=== PATIENT | female | born 1930 | race Caucasian/White ===

== ENCOUNTER 2019-09-01 11:47 | Inpatient (IN) | payer OTHER, BC ==
[~2019-09-01] VITALS: Ht 167.6 cm; Wt 59.0 kg
--- NOTE | ~2019-09-01 | EMS ---
[address] [address] EMS Patient Care Report Name: ELIZABETH CALLEJAS Room #: 170-1 ADM IN M.R.#: [id number] Admission: 09/01/19 Attend Phys: Kaveh Salinas DO Discharge: Date of : [birth year] Report #: [id number] THIS REPORT FOR: //name// Report Transmitted: 09/01/2019 19:21 EMS Care Summary [facility] MED-ACT Incident [id number] @ 09/01/2019 11:03 Incident Location [address] [place] [address] [place] [address] Patient ELIZABETH CALLEJAS Female, 89 Years 1930 Patient Address [address] [place] [address] [place] [address] Patient History Congestive Heart Failure (CHF),Dementia,Hypertension (HTN),Hyperlipidemia,Depression,Abdominal Aortic Aneurysm,Hypothyroidism,Hyperparathyroidism,Coronary Artery Disease (CAD), Patient Allergies No known allergies, Patient Medications Memantine, Quetiapine, Buspirone, Levothyroxine, Hydroxyzine, Citalopram, Pantoprazole, Spironolactone, Chief Complaint she won't take her meds and is agitated/violent Disposition Transported No Lights/Agar Dispatch Reason Psychiatric Problem/Abnormal Behavior/Suicide Attempt Transported To [address] [address] EMS Patient Care Report Name: ELIZABETH CALLEJAS Room #: 170-1 ADM IN ..#: [id number] Admission: 09/01/19 Attend Phys: Kaveh Salinas, DO Discharge: Date of : [birth year] Report #: [id number] Narrative Dispatched to a memory care facility for a female pt reported to have persistent agitation, violence towards staff members, and to be intermittently refusing to take her medications. Staff on scene report that this has been going on for about 1-2 weeks, and that she was sent to the ER last week for it. Staff says that the pt was thought to have a UTI due to the sudden behavior changes, however one was not discovered at the ER. They report that she has been placed on Omnicef as a precaution in case a UTI was missed. They also report that she was started on Seroquel, however she has not had an improvement in her behavior with it. Staff also says that she has been spitting out her medications at times, and has been attempting to strike them. They say that she has been verbally abusive as well. Staff says that the pts son agrees with their decision to send her to an ER, and that they would like her taken to [facility] due to geriatric psychiatric resources that are available there. They report that the son/dpoa agrees with this. Pt is found alert though not oriented, seated in a wheelchair just outside of the facility. Delay in pt contact time due to EMS initially being taken to the pts room as she was moved out of the building by staff utilizing a different route. Pt is agitated and verbally berates EMS, FD, and PD on scene. She occasionally attempts to slap and punch responders. This also causes a delay in obtaining vs. She refuses to wear a surgical mask. Pt is eventually lifted from the chair to the cot before being secured and moved to the ambulance for a no lights or sirens transport to [facility]. While en route, pt continues to be aggressive verbally and physically with EMS. Pt removed her pulse Ox sensor at one point during transport and used it to swing at and strike Capt Ingrid. Pt also had to be frequently stopped from removing her seatbelts. Pt denies ant physical complaints throughout. Upon arrival at the ER, pt moves herself laterally to the ER bed. Care is transferred to [facility]. Initial Vitals @11:35P: 106,BP: 143/81, @11:34P: 104,SpO2: 96, @11:23P: 108,R: 20,BP: 142/79,Pain: 0/10,GCS: 14,Glucose: 132,SpO2: 95,Revised Trauma: 12, Assessments @11:15MENTAL:Combative,Confused,Person Oriented,SKIN:HEENT:Head/Face: No Abnormalities,LUNG SOUNDS:ABDOMEN:PELVIS//GI:EXTREMITIES:Left Arm: No Abnormalities,Right Arm: No Abnormalities,PULSE:Radial: 2+ Normal,NEURO:No Abnormalities, Impression Behavioral/psychiatric episode [address] [address] EMS Patient Care Report Name: ELIZABETH CALLEJAS Room #: 170-1 ADM IN M.R.#: [id number] Admission: 09/01/19 Attend Phys: Kaveh Salinas, DO Discharge: Date of : [birth year] Report #: [id number] Timeline 11:01,Call Received 11:01,Psap Call 11:03,Dispatched 11:04,En Route 11:08,On Scene 11:12,At Patient 11:23,BP: 142/79 M,PULSE: 108,RR: 20 R,SPO2: 95 Ox,ETCO2: ,B,PAIN: 0,GCS: 14, 11:25,Depart Scene 11:34,BP: / M,PULSE: 104,RR: R,SPO2: 96 Ox,ETCO2: ,BG: ,PAIN: ,GCS: , 11:35,BP: 143/81 M,PULSE: 106,RR: R,SPO2: Ox,ETCO2: ,BG: ,PAIN: ,GCS: , 11:38,At Destination 12:03,Call Closed Disclaimer v1.1 Copyright 2020 [employer] This EMS Care Summary contains data elements from the applicable legal record (which may be displayed differently). It is designed to provide pertinent information for the following purposes: continuity of care, clinical quality, and state data reporting. The complete legal record is available to ED staff and administrators of the receiving hospital in [employer] Patient Tracker. All data is provided "as is."
[2019-09-01 11:48] VITALS: BP 137/68
[2019-09-01 15:33] LABS: CALCIUM 9.3 mg/dL (8.5-10.1); CREATININE 1.2 mg/dL (0.6-1.0); POTASSIUM 3.9 mmol/L (3.5-5.1)
[2019-09-01 15:38] LABS: ALBUMIN 3.8 g/dL (3.4-5.0); TOTAL BILIRUBIN 0.7 mg/dL (0.2-1.0); TOTAL PROTEIN 7.6 g/dL (6.4-8.2)
[2019-09-01 17:18] LABS: ABSOLUTE NEUTROPHILS 4.8 thou/uL (1.4-8.2); BASOPHILS 0.7 % (0.0-2.0); EOSINOPHILS 2.6 % (0.0-3.0); HEMATOCRIT 35.7 % (37.0-47.0); LYMPHOCYTES 20.6 % (24.0-44.0); MCH 32.4 pg (26.0-34.0); MCHC 33.7 g/dL (28.0-37.0); MCV 96.2 fL (80.0-100.0); MONOCYTES 10.3 % (1.0-8.0); PLATELET COUNT 245 thou/uL (150-400); POLYS 65.8 % (36.0-66.0); RBC 3.71 mil/uL (4.20-5.00); RDW 14.9 % (10.5-14.5); WBC 7.3 thou/uL (4.0-11.0)
[2019-09-01 17:33] LABS: URINE BILIRUBIN NEGATIVE (Negative); URINE BLOOD NEGATIVE (Negative); URINE CLARITY CLEAR; URINE COLOR YELLOW; URINE GLUCOSE-RANDOM* NEGATIVE (Negative); URINE KETONES TRACE (Negative); URINE LEUKOCYTES-REFLEX 1+ (Negative); URINE NITRITE-REFLEX NEGATIVE (Negative); URINE PROTEIN (DIPSTICK) NEGATIVE (Negative); URINE SPECIFIC GRAVITY 1.015 (1.005-1.035); URINE UROBILINOGEN 0.2 E.U./dl (0.2-1.0)
[2019-09-01 17:49] LABS: BACTERIA-REFLEX 1-9 Few /HPF (None Seen); CASTS None Seen /LPF (None Seen); CRYSTALS None Seen /LPF (None Seen); SQUAMOUS 0-3 Few /LPF (0-3); URINE RBC None Seen /HPF (0-2); URINE WBC-REFLEX 6-15 Few /HPF (0-5)
[2019-09-01 19:45] VITALS: BP 155/87
[2019-09-01 20:16] VITALS: BP 155/87
[2019-09-01 23:20] VITALS: BP 158/80
--- NOTE | 2019-09-01 23:55 | NUR ---
PATIENT CAME BY STRETCHER FROM [facility] ED TO [facility] UNIT AT 201909/01/19. SHE IS ADMITTED FOR DEMENTIA WITH AGITATION AND UTI. CURRENT UA IS AWAITING CULTURE RESULTS BEFORE TREATING WITH ANTIBIOTIC. SHE WAS IN [facility] FOR 5 DAYS AUGUST 21- FOR POSSIBLE UTI. SHE WAS THEN SENT BACK TO [facility] IN [place] WHERE SHE LIVES. SHE WAS STARTED ON CEFDINIR 300MG BID FOR 5 DAYS. SHE WAS STARTED ON IT ON THE FOR EMPIRIC UTI. LAST DOSE UNKNOWN. CALLED AND SPOKE WITH HER SON EJ SENIOR WHO IS ALSO HER DPOA. HE STATES THAT PATIENT HAS DX OF ALZHEIMERS. HE STATES SHE IS A/0X1 AND IS USUALLY VERY SWEET AND PLEASANT TO BE AROUND. HE STATES THAT SHE HAS HAD AT LEAST 7 UTI'S IN LAST 2 YEARS AND WITH EACH ONE SHE PRESENTS WITH SEVERE AGITATION, BECOMES HATEFUL AND COMBATIVE AND THREATENS TO HURT PEOPLE. HE STATES THAT PATIENT IS A DNR. HE GIVES CONSENT TO FORCE MEDS OR INJECTIONS IN ORDER TO KEEP PATIENT COMFORTABLE AND HER BEHAVIORS UNDER CONTROL TO NOT HARM HERSELF OR OTHERS. HE IS UPSET WITH [facility] STATING HE TOLD THEM THEY WERE DISCHARGING HER TOO SOON. PATIENT PRESENTS TONIGHT SEDATED AND OCCASIONALLY TALKING OUT LOUD BUT NOT MAKING SENSE. SHE KEEPS HER EYES CLOSED. SHE HAD GEODON 10MG IM AROUND NOON ON THE IN ER AND HAS HAD ATIVAN 2MG AT 1530 ON THE IN THE ER. PATIENT'S SKIN IS WARM DRY AND INTACT. SHE DOES HAVE BRUISING IN AREAS OF BOTH FOREARMS AND BACK OF HANDS FROM IV STICKS IN ED. LUNGS CLEAR BUT DIMINISHED BILATERALLY, RESPIRATIONS EVEN WITH SLIGHT LABORING. HOB INCREASED TO 30 DEGREES. 02 SAT 95% ON RA. BOWEL SOUNDS HYPOACTIVE X 4 QUADS. ABDOMEN SOFT AND NONTENDER. NO EDEMA NOTED THRUOUT. PATIENT'S BELONGINGS INVENTORIED. PATIENT WAS STANDBY ASSIST TO BSC IN ED PER REPORT FROM MANI BRITTON. PATIENT RESTING COMFORTABLY. WALKER BESIDE BED. BED IN LOW POSITION AND BED ALARM IS ON AND BED IS LOCKED. ROUTINE ROUNDING TO ASSESS STATUS AND SAFETY OF PATIENT.
[2019-09-02] MEDS ORDERED: BESIVANCE5 ML LT. EYE (05:59)
[2019-09-02] MEDS ORDERED: BUSPIRONE HCL10 MG PO (06:00)
[2019-09-02] MEDS ORDERED: CHILDREN'S ZYRT10 M1 PO (06:01)
[2019-09-02] MEDS ORDERED: ERYTHROMYCIN E3.5 G3 OPHTHALMIC (06:02)
[2019-09-02] MEDS ORDERED: LEXAPRO 10 MG T10 M1 PO (06:03)
[2019-09-02] MEDS ORDERED: HYDROXYZINE HCL10 M2 PO (06:05)
[2019-09-02] MEDS ORDERED: LEVO-T25 MCG PO (06:08)
[2019-09-02] MEDS ORDERED: LORAZEPAM 0.50.5 MG PO (06:08)
[2019-09-02] MEDS ORDERED: PROTONIX40 M2 PO (06:09)
[2019-09-02] MEDS ORDERED: SPIRONOLACTONE25 MG PO (06:11)
[2019-09-02 07:24] VITALS: BP 131/62
--- NOTE | 2019-09-02 08:39 | EKG ---
[facility] [place] [address] ELECTROCARDIOGRAM REPORT Name: ELIZABETH CALLEJAS Room #: [facility] ADM IN M.R.#: [id number] Admission: 09/01/19 Attend Phys: Kaveh Salinas DO Discharge: Date of : [birth year] Report #: [id number] THIS REPORT FOR: cc: Nelly Diana MD, Lisa MD Lundgren,Vicente Martell MD [facility] ~ THIS REPORT FOR: //name// [facility] ED Test Date: 2019-09-01 Test Time: 14:05:57 Pat Name: ELIZABETH CALLEJAS Department: Room: 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1930 Requested By: Matteo Pate Order Number: [id number] MD: Vicente Martinez Measurements Intervals [place] Rate: 84 P: 39 IL: 193 QRS: -26 QRSD: 103 T: 2 QT: 414 QTc: 490 Interpretive Statements Sinus rhythm Borderline left axis deviation Poor R wave progression No previous ECG available for comparison Electronically Signed On 09-02-2019 8:39:43 CDT by Vicente Martinez [email or web address] <ELECTRONICALLY SIGNED> By: Vicente Martinez MD, [facility] 09/02/19 0839 1405 1405 Vicente Martinez MD, [facility] /EPI
[2019-09-02 11:56] LABS: TSH 6.09 uIU/mL (0.358-3.740)
--- NOTE | 2019-09-02 15:12 | NUR ---
SLEPT LATE THIS AM -DID NOT EAT BREAKFAST BUT WAS ROUSABLE FOR AM MEDICATION AND EYE OINTMENT. WAS AGITATED AND ATTEMPTED TO STRIKE NURSING STAFF WHEN IM B12 ADMINISTERED. IS SOMULENT AND WILL FALL ASLEEP MID-CONVERSATION. REQUIRES ASSIST OF 1-2 FOR ALL ADLS INCLUDING TOILETING . HIGH FALLS RISK D/T ATAXIA,IMPULSIVE BEHAVIOR
--- NOTE | 2019-09-02 16:14 | NUR ---
HAMMAD spoke to the [facility] [address] of regarding pt. She said pt has resided there since 11/2018. She said in order for pt to return she needs to not be combative anymore. Fax number to send updates is [phone]. HAMMAD contacted Artur and introduced herself as well as got background hx. He believes pt's behaviors are due to a UTI; he said she behaves this way when she has one. HAMMAD provided education on dementia disease process and ensured he had pt's 4 digit code. He said pt was recently released from [facility] before he believes she was ready. HAMMAD team will continue to follow pt during her stay on this unit.
--- NOTE | 2019-09-02 19:27 | NUR ---
Care of patient assumed at 1915. Patient is lying in bed. Per report, patient attempts to get up to the toilet by herself. Murillo is provided to patient to be able to summon staff for assistance. Patient is sleeping when HS meds are delivewred to her room. States "What... I'm sleeping." when awakened for meds. Irritable and refuses assessment, but does take HS meds. Sleeping at each check.
[2019-09-02 20:08] VITALS: BP 107/40
--- NOTE | 2019-09-02 21:41 | H ---
[facility] [place] [address] HISTORY AND PHYSICAL Name: ELIZABETH CALLEJAS Room #: 520B-B ADM IN M.R.#: [id number] Admission: 09/01/19 Attend Phys: Kaveh Salinas DO Discharge: Date of : [birth year] Report #: [id number] THIS REPORT FOR: cc: Nelly Diana MD,Nelly Salinas,Kaveh Martell DO ~ CC: Kaveh Diana DATE OF SERVICE: 09/02/2019 INPATIENT PSYCHIATRIC EVALUATION ATTENDING PSYCHIATRIST: Kaveh Salinas DO. MEDICAL CONSULTANTS: RAYNE Hernandez and Bakari Sen MD and his hospitalist team. REASON FOR ADMISSION: Dementia with increased agitation, aggression, from [facility], hitting, biting, spitting out meds, believed to have a current UTI, but is refusing medication. She already went to Memory Care Unit. SOURCES OF INFORMATION: Records from [facility], Emergency Room interview with the patient today. I have not spoken to her power of assistant district attorney, Artur, who is her son, but I will add that on if I do today. CHIEF COMPLAINT: "You bitch."- said during ER encounter with program adminastrator HISTORY OF PRESENT ILLNESS: This is an 89-year-old female residing in Memory Care at [facility]. She has a history of increased agitation x 1 week. Staff at Memory Care Unit reports the patient has been more agitated, hitting staff multiple times. EMS attempted to transport the patient last week, but she became so aggressive that the son decided against the transport. The patient was started on Seroquel, but that has not improved her behavior today. The son agreed to have the patient evaluated here at [facility]. The patient denies any symptoms and is angry that she is even here. ALLERGIES: No known allergies. SOCIAL HISTORY: Denied cigarette use, denied alcohol use, denied recreational drug use. REVIEW OF SYSTEMS: From the Emergency Room in [place]: CONSTITUTIONAL: Denies fever, chills, malaise, unexplained weight change. EYES: Denies eye pain, visual change or discharge. [facility] [address] [place] [address] HISTORY AND PHYSICAL Name: ELIZABETH CALLEJAS Room #: 520B-B ADM IN M.R.#: [id number] Admission: 09/01/19 Attend Phys: Kaveh Salinas DO Discharge: Date of : [birth year] Report #: [id number] HENT: Denies hearing changes, ear drainage, ear infections, ear pain, neck pain or neck stiffness. RESPIRATORY: Denies cough, shortness of breath, hemoptysis or respiratory distress. CARDIOVASCULAR: Denies chest pain, chest pain with exertion or edema. GASTROINTESTINAL: Denies abdominal pain, nausea, vomiting or diarrhea. GENITOURINARY: Denies burning, frequency or dysuria. MUSCULOSKELETAL: Denies back pain, joint pain, muscle weakness or myalgias. SKIN: Denies rash. NEUROLOGIC: Denies weakness, headache or loss of consciousness. PSYCHIATRIC: As above. Otherwise, 10-point review of systems was negative. Her physical exam was grossly normal. LABORATORY DATA: EKG done in the ER interpreted by Dr. Philippe showed a sinus rhythm, rate of 84, nonspecific ST changes, QTc of 490. Laboratory Tests: White count 7.3, H and H 12.0 and 35.7, platelet count 245. Chemistries showed sodium 138, potassium 3.9, chloride 102, bicarbonate 24, anion gap 12, BUN 19, creatinine 1.2, estimated GFR 42, glucose 98, calcium 9.3, total bilirubin 0.7, AST 29, ALT 19, alkaline phosphatase 88, total protein 7.6, albumin 3.8. Vitamin B12 level 175. Iron replacement initiated. TSH slightly elevated at 6.09. 25-hydroxy vitamin D is pending. Urinalysis showed trace ketones, 1+ leukocyte esterase, positive for wbc's, few bacteria. Culture has been refluxed and that is not back yet. COVID-19 PCR was done and she is negative. PAST MEDICAL HISTORY: Abdominal aortic aneurysm, coronary artery disease, congestive heart failure, hypertension, hypothyroidism, urticaria, essential tremor. PRIMARY CARE PHYSICIAN: Dr. Nelly Diana, [phone]. ADDITIONAL INFORMATION: From [facility]. MEDICATIONS: At [facility] were quite a few and include: Tylenol; antibiotic ointment; buspirone; cefdinir, which is Omnicef 300 mg q.12 for empiric UTI. Cetirizine 10 mg p.o. daily. Ellura 36 mg PAC, I am not sure what that is, actually it says 200 mg. Erythromycin ointment was started 08/26/2019, so probably discontinue that if she is cleared up for her eye. Escitalopram 10 mg p.o. daily; estradiol cream; Eucerin cream; hydroxyzine; levothyroxine; lorazepam; melatonin; memantine; spironolactone; Seroquel 50 at night, 25 during the day; Protonix 40 mg daily for GERD, so we will discontinue the b.i.d. She was just in the ER at [facility]. [address] [address] HISTORY AND PHYSICAL Name: ELIZABETH CALLEJAS Room #: 520B-B ADM IN M.R.#: [id number] Admission: 09/01/19 Attend Phys: Kaveh Salinas, DO Discharge: Date of : [birth year] Report #: [id number] With regard to her current pharmacy, I will review what I have ordered, already made some increases to the Seroquel and changes to her other psychotropic medications. So, currently it is Tylenol p.r.n.; citalopram 20 mg p.o. daily, which we will discontinue due to her disinhibition. Keflex 500 mg b.i.d., vitamin B12 1000 mcg daily x 3 doses and then 1000 mcg oral daily. Levothyroxine 88 mcg daily, Mylanta p.r.n. Pantoprazole 40 mg b.i.d., we will change that to just 40 mg daily. Seroquel, I increased to 75 mg at bedtime, 50 mg twice a day at 9 and 5. Spironolactone 12.5 mg every other day. Buspirone, I reduced from 20 b.i.d. to 10 b.i.d. Pantoprazole, I reduced to 40 mg p.o. daily. PHYSICAL EXAMINATION: VITAL SIGNS: Today, temperature 36.3, pulse 72, respirations 13, BP 131/62, O2 sat 94%. MUSCULOSKELETAL: Abnormal gait, uses a walker, standby assist. MENTAL STATUS EXAMINATION: This is a well-developed, somewhat unkempt female appearing at least stated age. Attention limited. Concentration limited. mood/affected- constricted Speech slow, loud at times. Thought Process: Very limited and linear way. Thought Content: Intermittently cursing, irritable. No specific subjects could be elicited with recurrent thoughts. Denied SI or HI. Could not assess well for auditory, visual, or tactile hallucinations. Memory known to be impaired. Insight impaired, judgment impaired. Fund of knowledge well below average. FORMULATION: An 89-year-old female admitted for dementia with behavioral disturbance scenario. 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 She has a number of other morbidities including possible cystitis, history of cardiovascular disease, hypothyroidism. PLAN: Evaluate, stabilize, obtain collateral. Medication changes as above. Time spent on interview, review of records, coordination of care is at least 60 minutes. STRENGTHS: She is insured, supportive family, has DPOA. WEAKNESSES: Advanced age, neurodegenerative disorder, comorbidities. ADDENDUM: I spoek to son/ dpoa Son on phone after dictating. He reports 7 year hx of [address] [address] HISTORY AND PHYSICAL Name: ELIZABETH CALLEJAS [facility] M.R.[facility] [id number] Admission: 09/01/19 Attend Phys: Kaveh Salinas, Discharge: Date of : [birth year] Report #: [id number] dementia. He wants me to give independent diagbnostic opinion. I discussed black box warnign of use of antipsyhcotic in dentia patients. I left it I would vistit with him first few days of next week over phone again. <ELECTRONICALLY SIGNED> By: Kaveh Salinas DO 09/02/19 2141 [id number] 1825 Kaveh Salinas, /nt
[2019-09-03 07:40] VITALS: BP 112/58
--- NOTE | 2019-09-03 09:51 | NUR ---
Pt was in day room when I arrived this AM. Pt ate most of her brekfast this am. Medications taken whole with no resistance fluids encouraged. Assistment was as follows, chest clearx2,pedal pulse faint x2 heart regular. No edema noted on ankles or feet. Pt was some what irritable this AM denied any pain or depression. Staff continues to observe for safety.
[2019-09-03 17:20] VITALS: BP 112/58
--- NOTE | 2019-09-03 19:24 | NUR ---
Care of patient assumed at 1915. Patient is already in bed sleeping. Awakened at 2130 for HS meds. Irritable at being awakened. Compliant with HS meds but refuses assessment. Uncooperative with phsyical assessment and will not answer psych assessment line of questions. Sleeping again 10 minutes later.
[2019-09-03 19:30] VITALS: BP 82/34
[2019-09-04 07:49] VITALS: BP 94/49
[2019-09-04 09:13] VITALS: BP 135/40
--- NOTE | 2019-09-04 10:39 | NUR ---
1035 RESUMMED CARE FROM OVERNIGHT SHIFT THIS AM, PATIENT IN ROOM GETTING READY FOR BREAKFAST. PATIENT ORIENTED TIMES 2 PATIENT ATE BREAKFAST TOOK MEDICATION WITHOUT INCIDENCE. PATIENTS ABDOMEN SOFT ROUND BOWEL SOUNDS PRESENT LUNGS CLEAR. PATIENT DENIES SI/HI/AH/VH AT PRESENT, PATIENT CALM COOPERATIVE PLEASANT. WILL CONTINUE TO MONITOR PATIENT FOR BEHAVIORS AND SAFETY.
--- NOTE | 2019-09-04 19:18 | NUR ---
Care of patient ifeanyi at 1915. Patient is just retiring to her room. Calm and cooperative with assessment this evening. Oriented x 2. Denies pain. Says that the SW told her that her has and been buried. Patient is concerned that the kids are going to take all of the money and leave her with nothing. MASON, LS, BS all WNL. Patient is compliant with HS oral meds, but refuses scheduled Heparin SQ injeciton, stating "I don't need anything for blood clots. If it happens, it happens. I've had a long, full life, and a stroke or heart attack doesn't sound like a bad way to go if I have to go."
[2019-09-04 19:33] VITALS: BP 116/56
[2019-09-05 07:16] VITALS: BP 117/75
[2019-09-05 09:27] VITALS: BP 117/75
--- NOTE | 2019-09-05 11:10 | NUR ---
1110 RESUMMED CARE FROM OVERNIGHT SHIFT THIS AM, PATIENT ALLOWED ME TO DO HER ASSESSMENT. DURING EATING BREAKFAST PATIENT TOOK MEDICATION ORALLY BUT HAD REFUSED LET ME GIVE HER HEPARIN INJECTION. I THEN WENT INTO THE [facility] AND HAD ANOTHER STAFF HOLD HER HANDS WHILE I GAVE HER INJECTION. PATIENT CUSSED ME OUTAND CALLED ME A BITCH. PATIENT HAD HER BELONGING AND WAS CARRYING THEM AROUND STATING THAT SHE WAS LEAVING. DR VICTOR TOLD PATIENT SHE WAS NOT DISCHARGING TODAY. PATIENT WAS SOMEWHAT FRUSTRATED AND WANTED TO BE LEFT ALONE. PATIENT DENIES SI/HI/AH/VH AT PRESENT PATIENT ORIENTED TO SELF AND PLACE. WILL CONTINUE TO MONITOR PATIENT FOR BEHAVIORS AND SAFETY.
--- NOTE | 2019-09-05 11:55 | NUR ---
HAMMAD sent updates to Almita with [facility]. HAMMAD team will continue to follow pt during her stay on this unit.
[2019-09-05 20:31] LABS: ABSOLUTE NEUTROPHILS 7.5 thou/uL (1.4-8.2); BASOPHILS 0.4 % (0.0-2.0); EOSINOPHILS 3.6 % (0.0-3.0); HEMATOCRIT 40.3 % (37.0-47.0); HEMOGLOBIN 13.4 gm/dL (12.0-15.0); LYMPHOCYTES 15.5 % (24.0-44.0); MCHC 33.2 g/dL (28.0-37.0); MCV 96.2 fL (80.0-100.0); MONOCYTES 8.5 % (1.0-8.0); PLATELET COUNT 281 thou/uL (150-400); RBC 4.19 mil/uL (4.20-5.00); RDW 15.1 % (10.5-14.5); WBC 10.5 thou/uL (4.0-11.0)
[2019-09-05 21:21] LABS: CALCIUM 9.6 mg/dL (8.5-10.1); CREATININE 1.2 mg/dL (0.6-1.0); MAGNESIUM 2.2 mg/dL (1.8-2.4); POTASSIUM 4.4 mmol/L (3.5-5.1)
[2019-09-05 23:20] VITALS: BP 140/80
--- NOTE | 2019-09-06 03:46 | NUR ---
09-05-19 CARE TRANSFERED 1914 PT COMBATIVE, SWING ON RN AND DIRECTOR OF CORPORATE STRATEGY, PT REFUSES VS AND NURSING ASSESSMENT. PT AAOX2, PT STATED "I KNOWN WHO OWNS THIS HOSPITAL AND NICK GOING TO GET ALL OF YOU FIRED. YOU CANNOT KEEP ME HERE, I AM GOING HOME TONIGHT" REATTEMPTED NURSING ASSESSMENT AND PT REFUSED. PT WAS REFUSING MEDICATION THEN SECURITY TEAM ASSISTED AND PT DECIDED TO TAKE PO MEDICATION. IM MEDICATION WAS WASTED. LATER OBSERVED PT PUSH W/CHAIR INTO DIRECTOR OF CORPORATE STRATEGY AND SWING ON DIRECTOR OF CORPORATE STRATEGY, THEN PT TOOK HERSELF TO THE GROUND, THEN PT REARED HEAD BACK AND HIT WALL WITH RIGHT SIDE OF HEAD. PT CONTINUE VERBAL ABUSING STAFF, BUT DID COOPERATIVE AND REPOSITION HERSELF INTO SITTING POSITION. VS B/P MANUAL LEFT ARM SITTING 140/80, P 79, R 18, T 97.4, O2 SAT 97% RA RR EVEN AND NONLABORED; PERRLA, EQUAL STRONG WATCH ADJUSTER. ZERO IMPACT INJURIES NOTED. PT REPORTED THE LEFT SIDE OF HER HEAD HURT. ASKED PT IF SHE WOULD LIKE TYLENOL; PT STATED "I DON'T NEED YOUR HELP." PT PRESENTS COMBATIVE, ANGRY, HOSITLE AND DEMANDING WITH SARCASTIC COMMENTS TO STAFF. ZERO S/S OF ACUTE EMOTIONAL OR MEDICAL DISTRESS. WILL CONTINUE TO MONITOR PER [facility] PROTOCOL.
[2019-09-06 06:38] LABS: CALCIUM 8.5 mg/dL (8.5-10.1); CREATININE 1.1 mg/dL (0.6-1.0)
[2019-09-06 07:18] VITALS: BP 115/61
[2019-09-06 07:22] VITALS: BP 115/61
[2019-09-06 10:14] VITALS: BP 115/61
--- NOTE | 2019-09-06 10:24 | NUR ---
ASSUMED CARE AT 0700. PT. UP IN W/C ON THE UNIT, SITTING AT A TABLE. SHE IS FORGETFUL AND IRRITABLE. SHE ALLOWED THIS CRAP SHOOTER TO ASSESS HER AND GIVE HER HER MEDICATIONS. HOWEVER, SHE DID REFUSE THE HEPARIN. DR. PERKINS WAS NOTIFIED. WHEN THIS CRAP SHOOTER TRIED TO TALK TO HER, SHE SAID, "I'M FINE AND YOU CAN MOVE ALONG". SHE DENIES PAIN. HRR, LUNGS CTA, ABD. ROUND, SOFT. PEDAL PULSES + AND EQUAL BILAT. SHE WENT DOWN FOR A ULTRA SOUND OF HER KIDNEYS. SHE WAS WORRIED SHE WOULD BE BILLED FOR THAT. SHE KEPT STATING IT WAS MONEY FOR THE DR. SHE IS EATING WELL AND WILL SET IN ON GROUPS.
--- NOTE | 2019-09-06 12:17 | NUR ---
HAMMAD and Dr. Salinas hosted a family meeting via phone and discussed pt's med regimen. Dr. Salinas noted that it looks like pt's culture indicated an infection. He said he needed pt's records from [facility]. HAMMAD emailed to Artur a copy of a hospital release of information form to be signed by him. HAMMAD received this form back and faxed it to [facility]. HAMMAD team will continue to follow pt during her stay on this unit.
[2019-09-06 19:15] VITALS: BP 99/68
--- NOTE | 2019-09-07 03:55 | NUR ---
09-06-19 CARE TRANSFERED AT 1900 OBSERVED PT SITTING IN W/CHAIR IN DAY ROOM. 1909 PT AAOX3, VSS, RR EVEN AND NONLABORED ON RA; PT DENIES ANY NEW CONCERNS AT THIS TIME. PT WAS CALM AND COOPERATIVE THROUGHOUT NURSING ASSESSMENT. PT DENIES ANY PAIN AND SI/SH/HI/VAH. DURING MEDICATION ADMIN PT REFUSED IM HEPARIN STATING "I DON'T NEED THIS" PT HAD NO DIFFICULTIES TAKING PO PILLS. PT DID PRESENT A LITTLE IRRITABLE DURING MEDICATION ADMIN IT WAS R/T IM SHOT. ZERO S/S OF ACUTE EMOTIONAL OR MEDICAL DISTRESS. WILL CONTINUE TO MONITOR PER [facility] PROTOCOL.
[2019-09-07 05:57] LABS: CALCIUM 8.7 mg/dL (8.5-10.1); CREATININE 1.2 mg/dL (0.6-1.0); POTASSIUM 4.2 mmol/L (3.5-5.1)
[2019-09-07 06:06] LABS: ABSOLUTE NEUTROPHILS 4.4 thou/uL (1.4-8.2); BASOPHILS 0.6 % (0.0-2.0); EOSINOPHILS 7.6 % (0.0-3.0); HEMATOCRIT 37.3 % (37.0-47.0); HEMOGLOBIN 12.4 gm/dL (12.0-15.0); LYMPHOCYTES 17.2 % (24.0-44.0); MCHC 33.2 g/dL (28.0-37.0); MCV 96.5 fL (80.0-100.0); MONOCYTES 10.7 % (1.0-8.0); PLATELET COUNT 233 thou/uL (150-400); POLYS 63.9 % (36.0-66.0); RBC 3.87 mil/uL (4.20-5.00); RDW 15.3 % (10.5-14.5); WBC 6.9 thou/uL (4.0-11.0)
[2019-09-07 07:22] VITALS: BP 133/76
[2019-09-07 12:47] VITALS: BP 133/76
--- NOTE | 2019-09-07 12:56 | NUR ---
ASSUMED CARE AT 0700. SHE HAS BEEN ON THE UNIT, DRESSED. SHE IS MOSTLY PLEASANT WITH THIS RN. SHE TOOK HER MORNING MEDICATIONS WITHOUT DIFFICULTY. SHE CONTINUES TO REFUSE HER SQ HEPARIN AND HER CYNOCABALAMIN. AGAIN INFORMED OF THIS. HE LOOKED AT HER MEDICATIONS AND D/C'D THE MEDS. SHE ATTENDED MORNING GROUPS. SHE CONTINUES TO HAVE A FLAT AFFECT BUT IS RESPONDING TO ALL QUESTIONS ASKED OF HER AND WILL HOLD THE CONVERSATION.
--- NOTE | 2019-09-07 13:29 | NUR ---
HAMMAD contacted Almita with [facility] to provide an update on pt. Almita was on another call. HAMMAD left [facility]. SW team will continue to follow pt during her stay on this unit.
[2019-09-07 14:18] VITALS: BP 140/64
--- NOTE | 2019-09-07 15:54 | NUR ---
Sw met with this pt 1:1 instead of group and provided some distraction and reminiscent therapy. Pt is convinced she was just in [facility] and that she needed to get back to [place]. She repeatedly told this television script writer that her 3 sons live in the [facility] area but has no idea how she got here. Pt is pleasantly confused.
--- NOTE | 2019-09-07 19:21 | NUR ---
Care of patient assumed at 1915. Patient is sitting in the day room in wheel chair. Disoriented to time, palce, and situation. Assisted to the toilet. Talks about her kids "taking everything and leaving me with nothing". Several times makes reference to [place], thinking she is at a resort in [place]. HS, LS, BS WNL. This nurse attempts to reorient patient to time, place, and situation with little to no success. Patient complies with HS meds, only because this nurse explained the purpose of the antibiotic. Up to bathroom twice more before falling asleep.
[2019-09-07 20:19] VITALS: BP 113/53
[2019-09-08 07:27] VITALS: BP 108/65
--- NOTE | 2019-09-08 08:00 | NUR ---
PT SITTING IN DINING ROOM FOR BREAKFAST. PT IN W/C. PT DENIES ANY GOAL OR CONCERNS TODAY. PT HAS SLIGHT [place]OVERDALE. GETTING PT COFFEE ASKED IF SHE IS DM SHE STATED NO JUST AN OLD LADY AND LAUGHED. PT TOOK MEDS WITH ENCOURAGEMENT. PT LUNGS CLEAR. PT DENIES PAIN.
[2019-09-08 08:30] VITALS: BP 108/65
--- NOTE | 2019-09-08 08:41 | NUR ---
RT Progress Note- Luz's participation in the milieu and recreation groups has progressed during her stay. She is less irritable during social interactions, though she continues to show poor orientation to present situation. She enjoys reminiscing in particular.
--- NOTE | 2019-09-08 11:25 | NUR ---
ASSISTED PT TO BATHROOM. PT IS UPSET DUE TO NOT MAKING TO BATHROOM ON TIME. PT STATED IT TAKES HER AWHILE TO GET TO BATHROOM WHEN WHEELING SELF IN W/C. PT STATED HER LEFT KNEE GIVES OUT AND SHE HAS SOME PAIN TO IT. WILL GIVE PT SOME MEDICATION FOR KNEE PAIN.
--- NOTE | 2019-09-08 12:24 | NUR ---
ADM TYLENOL 325MG 2 TABS ORAL FOR PAIN TO LEFT KNEE OF 8 ON 1-10 SCALE. PT STATED ITS GETTING BETTER NOW THAT SHE IS OFF OF IT.
--- NOTE | 2019-09-08 13:37 | NUR ---
[facility] faxed updates to [facility] for pt. [facility] team will continue to follow pt during her stay on this unit.
--- NOTE | 2019-09-08 16:24 | NUR ---
PT RESTING IN BED WITH EYES CLOSED. PT UNABLE TO TAKE PO SEROQUEL AT THIS TIME.
--- NOTE | 2019-09-08 17:40 | NUR ---
NOTIFIED DR. VICTOR ABOUT PT NOT ABLE TO TAKE SEROQUEL. HE IS AWARE OF HER SLEEPINESS. WILL ASSESS SOMULANCE TOMMORROW.
[2019-09-08 19:24] VITALS: BP 113/61
--- NOTE | 2019-09-09 02:19 | NUR ---
Care of patient assumed at 1915. Patient is laying in bed. Calm and cooperative with assessment. Denies pain. Denies SI/HI. Still very confused, A/O to self only. Asked if she talked to the SW as she had wanted to. Patient doesn't remember conversation in which she said she needed to see the SW. HS, LS, BS WNL. Patient is compliant with HS meds when delivered to her. Asleep shortly later. Patient is up a few times throughout the night to use toilet. Able to return to sleep without issue each time.
[2019-09-09 07:30] VITALS: BP 118/70
--- NOTE | 2019-09-09 10:30 | NUR ---
Assess due to length of stay. Admit to [facility] for alzheimers dementia and behavioral disturbances. Hx CKD. Labs indicate pt vitamin D and B12 deficiency and has been started on appropriate supplementation for this. Wt stable. Eating 90-100% of majority of meals. Provider has indicated malnutrition: will defer. No further nutrition intervention needed at this time. Low nutrition risk
--- NOTE | 2019-09-09 13:00 | NUR ---
[facility] contacted [facility] to discuss d/c for pt on Thursday and was told Almita the DON is not in today. SW team will continue to follow pt during her stay on this unit.
[2019-09-09 13:32] VITALS: BP 118/70
--- NOTE | 2019-09-09 13:37 | NUR ---
ASSUMED CARE AT 0700 TODAY. PT. UP, DRESSED, IN W/C, AND IN THE DAY ROOM/DINNING ROOM. PT. SITTING QUIETLY. SHE WANTED ALL HER MEDICATIONS EXPLAINED TO HER. AFTER THEY WERE EXPLAINED, SHE TOOK THEM. HER TONE HAS AN EDGE TO IT. SHE IS A BIT IRRITABLE.W SHE STARTED TELLING THIS UTILITY SPECIALIST THAT SHE IS NOT YELLING OUT LIKE A PEER IS DOING TODAY. SHE BELIEVES BECAUSE OF THIS, SHE MUST NOT NEED ANY MORE HELP AND THUS CAN GO HOME. IT WAS EXPLAINED TO HER THAT IT WILL BE NEXT WEEK WHEN SHE CAN GO HOME. SHE ACCEPTED THIS BUT STATED SHE WANTS THE DRMarti TO TELL HER. SHE HAD AN ORDER FOR A UA. THIS WAS OBTAINED AND SENT TO THE LAB.
[2019-09-09 14:04] LABS: URINE BILIRUBIN NEGATIVE (Negative); URINE BLOOD 1+ (Negative); URINE CLARITY CLEAR; URINE COLOR YELLOW; URINE GLUCOSE-RANDOM* NEGATIVE (Negative); URINE KETONES NEGATIVE (Negative); URINE NITRITE-REFLEX NEGATIVE (Negative); URINE PROTEIN (DIPSTICK) NEGATIVE (Negative); URINE UROBILINOGEN 0.2 E.U./dl (0.2-1.0)
[2019-09-09 14:15] LABS: URINE LEUKOCYTES-REFLEX 3+ (Negative)
[2019-09-09 14:26] LABS: CASTS None Seen /LPF (None Seen); SQUAMOUS 4-10 Moderate /LPF (0-3)
[2019-09-09 14:27] LABS: CRYSTALS None Seen /LPF (None Seen); URINE RBC 0-2 Rare /HPF (0-2); URINE WBC-REFLEX >25 Many /HPF (0-5); WBC CLUMPS Moderate (None Seen)
[2019-09-09 19:59] VITALS: BP 94/37
--- NOTE | 2019-09-10 01:19 | NUR ---
Care of patient assumed at 1915. Patient is in her wheel chair in the hallway. Pleasant and cooperative with assessment. Oriented to self only. COnfused. Denies pain. Says she doesn't understand why the kids haven't visited. This nurse explains that visitors are very limited due to COVID -19. Patient accepts this well. Goes to her room to watch the sunset out the window. Compliant with HS meds.
[2019-09-10 07:49] VITALS: BP 99/48
[2019-09-10 10:04] VITALS: BP 110/68
--- NOTE | 2019-09-10 12:21 | NUR ---
1200 RESUMMED CARE FROM OVERNIGHT SHIFT THIS AM, PATIENT UP IN W/C IN ROOM. PATIENT ALLOWED ME TO DO HER ASSESSMENT ABDOMEN SOFT ROUND BOWEL SOUNDS PRESENT. PATIENTS LUNGS CLEAR PATIENTS SKIN MOTTLED SOME BRUISING ON HANDS DUE TO DRAWING BLOOD. PATIENT REFUSED HER LABS THIS AM AND DR PERKINS SAID WE CAN TRY TO GET THEM TOMMOROW. PATIENT STATES WE ARE JUST OUT TO MAKE MONEY OFF HER SOMETIMES PATIENT IS RESISTENT FOR CARE. PATIENT DENIES SI/HI/AH/VH AT PRESENT PATIENT ORIENTED TO SELF ONLY. PATIENT COOPERATIVE AND CALM WILL CONTINUE TO MONITOR PATIENT FOR BEHAVIORS AND SAFETY.
[2019-09-10 19:41] VITALS: BP 121/56
--- NOTE | 2019-09-11 04:26 | NUR ---
09-10-19 CARE TRANSFERED 1899 OBSERVED PT RESTING WITH EYES OPEN RIGHT SIDE LYING. 1914 PT AAOX1, PT WAS CONFUSED IF SHE WAS IN [place] OR [place], PT WAS CALM ABOUT BEING IN [place] AND COOPERATIVE THROUGHOUT NURSING ASSESSMENT. PT VSS, RR EVEN AND NONLABORED ON RA. PT DENIES ANY PAIN AND SI/SH/HI/VAH. ASSISTED PT IN TRANSFERED FROM BED TO BATHROOM WITH USING GAIT BELT. PT REPORTED I THOUGH I HAD TO GO, BUT I GUESS NOT. ASSISTED PT BACK INTO W/CHAIR AND PT WENT TO DAY ROOM FOR SNACK. DURING MEDICATION ADMIN PT HAD NO DIFFICULTES. ZERO S/S OF ACUTE EMOTIONAL OR MEDICAL DISTRESS NOTED. WILL CONTINUE TO MONITOR PER [facility] PROTOCOL.
[2019-09-11 06:02] LABS: HEMATOCRIT 37.1 % (37.0-47.0); HEMOGLOBIN 12.2 gm/dL (12.0-15.0); MCH 31.8 pg (26.0-34.0); MCHC 32.9 g/dL (28.0-37.0); MCV 96.6 fL (80.0-100.0); PLATELET COUNT 235 thou/uL (150-400); RBC 3.84 mil/uL (4.20-5.00); RDW 14.7 % (10.5-14.5)
[2019-09-11 06:27] LABS: ALBUMIN 2.9 g/dL (3.4-5.0); CALCIUM 8.9 mg/dL (8.5-10.1); CREATININE 1.2 mg/dL (0.6-1.0); MAGNESIUM 2.2 mg/dL (1.8-2.4); PHOSPHORUS 3.4 mg/dL (2.5-4.9); POTASSIUM 4.5 mmol/L (3.5-5.1); TOTAL BILIRUBIN 0.3 mg/dL (0.2-1.0); TOTAL PROTEIN 6.3 g/dL (6.4-8.2)
[2019-09-11 07:42] VITALS: BP 108/66
[2019-09-11 09:58] VITALS: BP 108/66
--- NOTE | 2019-09-11 10:44 | HC ---
[facility] [place] [address] CONSULTATION Name: ELIZABETH CALLEJAS Room #: 520B-B ADM IN M.R.#: [id number] Admission: 09/01/19 Attend Phys: Kaveh Salinas, Discharge: Date of : [birth year] Report #: [id number] THIS REPORT FOR: cc: Nelly Diana MD,Kyler Dixon MD, MD ~ CC: Kaveh Diana DATE OF SERVICE: 09/11/2019 INFECTIOUS DISEASE CONSULTATION ATTENDING PHYSICIAN: Dr. Salinas. REASON FOR EVALUATION: Complicated urinary tract infection. The patient has underlying dementia with aggressive behavior. HISTORY OF PRESENT ILLNESS: Chart reviewed, patient examined. This 89-year-old woman with known history of dementia, who was admitted to the Memory Care Unit due to aggressive behavior towards staff at her facility. She had been here a number of days. Apparently had been on Macrodantin and ultimately got a urinalysis on 09/09/2019, was found to have marked pyuria, WBC clumps. Urine culture now with growth of Pseudomonas aeruginosa, awaiting ID and susceptibilities. Empirically started on Levaquin. She is seen in the dining area. She is very pleasant at this point. Denies significant amount of pain or discomfort. She is not aware of any fevers. No pulmonary-related complaints. ALLERGIES: Listed to NONSTEROIDALS. CURRENT MEDICATIONS: Include levofloxacin 250 p.o. daily, quetiapine, cyanocobalamin, cholecalciferol, levothyroxine, pantoprazole, olanzapine, p.r.n. analgesics and antiemetics. PAST MEDICAL HISTORY: History of above noted dementia at times with aggressive behavior, history of hypothyroidism. SOCIAL HISTORY: Available in chart. FAMILY HISTORY: Available in chart. REVIEW OF SYSTEMS: As noted above. PHYSICAL EXAMINATION: GENERAL: She is pleasant, alert, cooperative. She is in no evident distress. VITAL SIGNS: Temperature 98.1, pulse 85, respirations 16 and blood pressure [facility] [address] [place] [address] CONSULTATION Name: ELIZABETH CALLEJAS [facility] .R.#: [id number] Admission: 09/01/19 Attend Phys: Kaveh Salinas, DO Discharge: Date of : [birth year] Report #: [id number] 108/66. SKIN: Warm, dry, no rashes. HEENT: Otherwise, unremarkable. NECK: Supple. LUNGS: Generally clear to auscultation. Somewhat diminished. HEART: Regular, occasional ectopy. ABDOMEN: Soft, nontender. GENITAL AND RECTAL: Deferred. LABORATORY DATA: Recent labs: Sodium 138, potassium 4.5, chloride 103, bicarbonate is 29, anion gap of 6, BUN and creatinine 20 and 1.2, glucose of 84. LFTs unremarkable. Albumin of 2.8, total protein 6.4. Estimated GFR of 42. CBC: White count of 7.0, H and H 12.2 and 37.1, platelets of 235. Urine as described above, greater than 10 to the fifth Pseudomonas aeruginosa with the urinalysis shows greater than 25 white cells, 10-30 bacteria. ASSESSMENT AND PLAN: Complicated urinary tract infection with Pseudomonas. I think given the situation, Levaquin is a reasonable option given her history, in the event she would get worsened. Note that it was resistant to quinolones in vitro, I need to consider placing an IV. At this point, I do not see any evidence of toxicity. Continue to encourage p.o. intake including fluids. Noted she had a VRE isolated from her urine at the initial urine culture, always a concern about asymptomatic bacteriuria. <ELECTRONICALLY SIGNED> By: Kyler Brooke MD 09/11/19 1044 [id number] [id number] Kyler Brooke MD /nt
--- NOTE | 2019-09-11 11:05 | NUR ---
1045 RESUMMED CARE FROM OVERNIGHT SHIFT THIS AM, PATIENT SITTING IN W/C IN DAY ROOM. PATIENT WAS TALKING WITH ANOTHER FEMALE PATIENT, PATIENT ATE BREAKFAST TOOK MEDICATION WITHOUT INCIDENCE. PATIENT DENIES SI/HI/AH/VH AT PRESENT PATIENT IS ORIENTED TO SELF AND PLACE. THE INFECTION CONTROL DOCTOR CAME TO TALK TO PATIENT ABOUT URINE CULTURE. PATIENT STATES SHE DOES NOT WANT TO DO ANY MORE TESTING. SHE IS ON A LEVOFLOXCIN FOR UTI PATIENT CALM COOPERATIVE HAS NPT DISPLAYED ANY BEHAVIORS. WILL CONTINUE TO MONITOR PATIENT FOR SAFETY AND BEHAVIORS.
[2019-09-11 12:14] LABS: ABSOLUTE NEUTROPHILS 3.9 thou/uL (1.4-8.2)
[2019-09-11 19:28] VITALS: BP 112/51
--- NOTE | 2019-09-12 05:41 | NUR ---
09-11-19 CARE TRANSFERED 0 OBSERVED PT IN HALLWAY IN W/CHAIR. 1954 PT AAOX2, VSS, RR EVEN AND NONLABORED, PT DENIES ANY PAIN AND SI/SH/HI/VAH. PT REMAINED CALM AND COOPERATIVE THROUGHOUT NURSING ASSESSMENT. PT HAD NO DIFFICULTIES DURING MEDICATION ADMIN. ZERO S/S OF ACUTE EMOTIONAL OR MEDICAL DISTRESS. WILL CONTINUE TO MONITOR PER [facility] PROTOCOL.
[2019-09-12 07:21] VITALS: BP 102/61
[2019-09-12 14:37] VITALS: BP 102/61
[2019-09-12 14:44] VITALS: BP 102/61
[2019-09-12 14:49] VITALS: BP 102/61
[2019-09-12 19:54] VITALS: BP 99/74
[2019-09-12 19:56] VITALS: BP 97/47
--- NOTE | 2019-09-12 22:30 | NUR ---
Care of patient assumed at 1915. Patient is already sleeping in bed. Awakened easily when HS meds are brought to her. Compliant with meds and assessment. Oriented to self only. Denies pain. Denies any needs or concerns at this time. Reports LBM yesterday. HS, LS, BS normal. Returns to sleep after receiving meds.
[2019-09-13 07:31] VITALS: BP 102/55
--- NOTE | 2019-09-13 09:40 | NUR ---
[facility] arranged with Almita yesterday discharge for pt on 09/13 @ 11am. Transportation is [employer] #[id number]. SW team will continue to follow pt during her stay on this unit.
[2019-09-13 11:11] VITALS: BP 102/55
--- NOTE | 2019-09-13 12:13 | NUR ---
1210 RESUMMED CARE FROM OVERNIGHT SHIFT THIS AM, PATIENT IS ALERT IN DAY ROOM WAITING FOR BREAKFAST. PATIENT TOOK MEDICATION WITHOUT INCIDENCE PATIENT WAS ORDERED ESTROGEN VAGINALLY. PATIENT WAS NOT RECEPTIVE AT FIRST BUT ALLOWED ME TO INSERT THE MEDICATION. PATIENT DENIES AI/HI/AH/VH AT PRESENT PATIENTS ABDOMEN SOFT ROUND BOWEL SOUNDS PRESENT. PATIENTS LUNGS CLEAR PATIENT HAS NOT DISPLAYED ANY BEHAVIORS. WILL CONTINUE TO MONITOR PATIENT FOR SAFETY AND BEHAVIORS.
[2019-09-13 20:05] VITALS: BP 111/47
--- NOTE | 2019-09-14 03:36 | NUR ---
Care of patient assumed at 1915. Patient is pleasant upon approach. Cooperative with assessment. Oriented to self and place. She knows she is discharging tomorrow, but thinks [place] the [place]. HS, LS, BS normal. Denies pain. Assisted to the toilet resulting in moderate BM. Upset because she can't find her suitcase in the shower. Keeps returning to this theme dispite the many times this nurse exlained to her that it is a shower, and that her property is in the property room. Patient is med compliant, taking her HS meds with her snack. After snack, patient is assisted to bed and quickly falls asleep.
[2019-09-14 07:53] VITALS: BP 101/48
[2019-09-14] MEDS ORDERED: LEVAQUIN 750 M750 MG PO (09:37)
[2019-09-14] MEDS ORDERED: SEROQUEL 100 M100 M1 PO (09:37)
[2019-09-14] MEDS ORDERED: PREMARIN30 GM VAG (09:38)
[2019-09-14] MEDS ORDERED: SEROQUEL 25 MG25 M1 PO (09:38)
[2019-09-14] MEDS ORDERED: B-12500 MCG PO (09:39)
[2019-09-14] MEDS ORDERED: FOLIC ACID1 MG PO (09:39)
[2019-09-14] MEDS ORDERED: SYNTHROID100 MC1 PO (09:39)
[2019-09-14] MEDS ORDERED: VITAMIN D325 MC1 PO (09:40)
[2019-09-14 10:32] VITALS: BP 101/48
--- NOTE | 2019-09-14 11:25 | NUR ---
1030 RESUMMED CARE FROM OVERNIGHT SHIFT THIS AM, PATIENT IN DAY ROOM WAITING FOR BREAKFAST. PATIENT ATE TOOK MEDICATION WITHOUT INCIDENCE ATTENDED GROUP. PATIENT IS EXCITIED THAT SHE IS DISCHARGING TODAY, PATIENT DENIES SI/HI/AH/VH AT PRESENT. PATIENT IS ORIENTED TO SELF PLACE YEAR PATIENTS ABDOMEN SOFT ROUND BOWEL SOUNDS PRESENT. PATIENTS LUNGS CLEAR PATIENT COOPERATIVE CALM PATIENT DISCHARGED AT 11:10 AM TO PREVIOUS PLACEMENT. PATIENT HAS BELONGINGS AFTERCARE INSTRUCTIONS. PATIENT HAS BEEN VERY PLEASANT THIS MORNING.
--- NOTE | 2019-09-14 13:14 | NUR ---
[facility] D/C NOTE SW faxed discharge documents to [facility] . [facility] will file the confirmation page in pt's hospital file. No other needs for SW team to address at this time.
--- NOTE | 2019-09-16 21:25 | D ---
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 Medical comorbidities at the time of discharge is recurrent UTI, Pseudomonas positive, currently on levofloxacin 750 mg daily. She has done about 5 days of treatment for this. We will give her 5 more days for good measure; chronic kidney disease stage 3, stable monitoring, severe B12 deficiency, replacing orally, vitamin D deficiency, replaced; recheck in 6 weeks; hypothyroidism, continue current regimen; hypertension, continue home meds, moderate amount of infusion. She is discharging to nursing facility, [facility], Psychiatric and medical care to be provided by receiving facility. DISCHARGE DIET: Regular, Ensure Enlive twice daily. DISCHARGE MEDICATIONS: Levofloxacin. The dose is 250 mg p.o. daily at 12:00 noon, continuing five more days. Seroquel 100 mg p.o. at bedtime, 75 mg p.o. 0900, 1500, 1700, estrogen cream 2 gram vaginal apply daily for dryness, levothyroxine 100 mcg oral daily received 100, cyanocobalamin 1000 mcg oral daily, folic acid 1 mg oral daily, vitamin D 5000 International Units p.o. daily, Protonix 40 mg p.o. in a.m. for GERD. ACTIVITY: As tolerated. She requires 01/09 memory care. REASON FOR ADMISSION: Back on 09/01/2019, sent to the ER from [facility]. She was more agitated, aggressive, hitting staff multiple times. HOSPITAL COURSE: The patient was admitted to Geriatric Psychiatry Unit. Seroquel was titrated. The patient was a little slow to respond than I expected [facility] [address] [place] [address] DISCHARGE SUMMARY Name: ELIZABETH CALLEJAS Room #: 520B-B [facility] IN M.R.#: [id number] Admission: 09/01/19 Attend Phys: Kaveh Salinas, Discharge: 09/14/19 Date of : [birth year] Report #: [id number] but then became quite pleasant, participating in activities. No severe suicidal or homicidal ideations on day of discharge. LABORATORY DATA: white count 7.0, H and H are 12.2 and 37.1, platelet count 235. Sodium 138, potassium 4.5, chloride 103, bicarbonate 20, anion gap 6, BUN 20, creatinine 1.2, estimated GFR 42, glucose 84, calcium 8.9, phosphorus 3.4, magnesium 2.2, total bilirubin 0.3, AST 7, ALT 12, alkaline phosphatase 95, total protein 6.3, albumin 2.9, which was low. Urinalysis, again she had first VRE infection that was treated with nitrofurantoin and then Pseudomonas aeruginosa was detected. Unfortunately, she has renal cyst. There was a renal ultrasound done and that likely is a reason for the recurrent infections. ID was consulted this admission and recommended ____ COVID-19 PCR was negative at discharge and negative at time of admission. PHYSICAL EXAMINATION: VITAL SIGNS: On the day of discharge are as follows: Temperature 36.4, pulse 67, respirations 14, BP 101 systolic, O2 sat 96%. MUSCULOSKELETAL: Nonambulatory, using wheelchair. MENTAL STATUS EXAMINATION: This is a well-developed, age-appearing female. Attention limited. Concentration limited. Speech is normal rate. Thought process is linear and goal directed. Thought content focused on discharge. Oriented to self, not fully to time or situation. Denied SI or HI. Denied hopelessness, helplessness. Denied auditory, visual, or tactile hallucinations. Memory not formally tested. Insight limited. Judgment limited. Fund of knowledge is below average. PROGNOSIS: For this patient is guarded given her age of 89, and presence of neurodegenerative disorder. <ELECTRONICALLY SIGNED> By: Kvaeh Salinas DO 09/16/[id number] 99 55 Kaveh Salinas DO /nt
== END 2019-09-14 11:10 | DRG 57 ==
LOC: ER 11:47 → EROBS 18:12 → SBH 18:12
PROVIDERS: Internal Medicine; Nurse Practitioner; Physician Assistant; ADMIT Psychiatry & Neurology Psychiatry; ATTEND Psychiatry & Neurology Psychiatry
DX: G30.9 Alzheimer's disease, unspecified (principal); F01.51 Vascular dementia, unspecified severity, with behavioral disturbance; N17.9 Acute kidney failure, unspecified; N18.3 Chronic kidney disease, stage 3 (moderate); E46 Unspecified protein-calorie malnutrition; I13.0 Hypertensive heart and chronic kidney disease with heart failure and stage 1 through stage 4 chronic kidney disease, or unspecified chronic kidney disease; E03.9 Hypothyroidism, unspecified; B96.5 Pseudomonas (aeruginosa) (mallei) (pseudomallei) as the cause of diseases classified elsewhere; E53.8 Deficiency of other specified B group vitamins; E55.9 Vitamin D deficiency, unspecified; N30.90 Cystitis, unspecified without hematuria; M19.90 Unspecified osteoarthritis, unspecified site; F41.9 Anxiety disorder, unspecified; F32.9 Major depressive disorder, single episode, unspecified; I25.10 Atherosclerotic heart disease of native coronary artery without angina pectoris; I50.9 Heart failure, unspecified; Z66 Do not resuscitate; Z79.899 Other long term (current) drug therapy; Z68.21 Body mass index [BMI] 21.0-21.9, adult; Z03.818 Encounter for observation for suspected exposure to other biological agents ruled out; Z88.8 Allergy status to other drugs, medicaments and biological substances
CPT/HCPCS: 10880